=== PATIENT | female | born 1940 | race Caucasian/White ===

== ENCOUNTER 2021-07-05 04:51 | Inpatient (IN) | payer MEDICARE ==
[2021-07-05] MEDS ORDERED: Aspirin Chewable 81 MG TAB ONE (07:05)
[2021-07-05 07:09] LABS: #Monocytes 0.5 10x3/uL (0.0-1.1); #Neutrophils 15.7 10x3/uL (1.5-8.4); %Basophils 0.2 % (0.0-2.0); %Lymphocytes 1.9 % (18.0-47.0); %Neutrophils 93.5 % (40.0-75.0); Hemoglobin 11.8 g/dL (12.0-15.5); Mean Corpuscular Hemoglobin 32.5 pg (27.0-33.0); Mean Corpuscular Volume 95.6 fl (81.6-98.3); Mean Platelet Volume 10.2 fl (7.4-10.4); Platelet Count 186 10x3/uL (150-450); RBC Distribution Width 12.3 % (11.5-14.5); Red Blood Cell (RBC) Count 3.63 10x6/uL (3.90-5.03); White Blood Cell (WBC) Count 16.8 10x3/uL (3.5-10.5)
[2021-07-05 07:32] LABS: ALT (SGPT) 166 U/L (8-55); AST (SGOT) 117 U/L (5-34); Albumin 3.2 g/dL (3.4-4.8); Alkaline Phosphatase 246 U/L (40-110); Anion Gap 19 mmol/L (10-20); BUN (Urea Nitrogen) 26 mg/dL (9.8-20.1); Calc. Creatinine Clearance 0 mL/min (70-130); Carbon Dioxide 19 mmol/L (23-31); Chloride 101 mmol/L (98-107); Globulin 2.7 g/dL (2.4-3.5); Protein, Total 5.9 g/dL (5.8-8.1); Sodium 136 mmol/L (136-145)
[2021-07-05 07:59] LABS: CKMB 4.5 ng/mL (0-6.6)
[2021-07-05] MEDS ORDERED: Potassium Chloride 20 MEQ TAB ONE (08:09)
[2021-07-05 08:18] LABS: SARS-CoV-2 NAA Rapid Test Not Detected (NotDetected)
[2021-07-05 08:56] LABS: Bilirubin 6 (Negative); Blood, Urine 150 (Negative); Clarity Slightly Cloudy (Clear); Glucose, Urine (Dipstick) Normal (Negative); Ketone, Urine 5 mg/dL (Negative); Leukocyte 100 (Negative); Nitrite Negative (Negative); Protein, Urine (Dipstick) 30 mg/dl (Neg-Trace); Specific Gravity, Urine 1.015 (1.002-1.036)
[2021-07-05 09:19] LABS: Calcium 9.8 mg/dL (7.8-10.44); Glucose 116 mg/dL (83-110)
[2021-07-05 09:28] LABS: Bacteria/HPF 1+ HPF (None Seen); RBC/HPF 0-3 HPF (0-3); Squamous Epithelial 0-3 HPF (0-3)
[2021-07-05] MEDS ORDERED: HumaLOG 300 UNITS/3 ML VIAL SC PRN ×2 (11:18)
[2021-07-05] MEDS ORDERED: Dextrose 50% Abboject 50 ML SYRINGE SLOW IVP PRN (11:18)
[2021-07-05] MEDS ORDERED: Nitroglycerin 0.4 MG TAB (25 Tab Bottle) SL PRN (11:18)
[2021-07-05] MEDS ORDERED: Dextrose 5% in Water 1,000 ML IV PRN (11:18)
[2021-07-05 12:09] LABS: Troponin I 0.062 ng/mL (< 0.028)
[2021-07-05 12:50] LABS: Lactic Acid 1.7 mmol/L (0.5-2.2)
[2021-07-05 15:08] LABS: Troponin I 0.046 ng/mL (< 0.028)
[2021-07-05 21:03] VITALS: BMI 28.3
[2021-07-05] MEDS: Sodium Chloride 0.9% 1,000 ML IV SCH ×2 (22:00→22:01)
[2021-07-06 04:15] LABS: #Eosinphils 0.1 10x3/uL (0.0-0.5); #Monocytes 0.9 10x3/uL (0.0-1.1); #Neutrophils 13.9 10x3/uL (1.5-8.4); %Basophils 0.2 % (0.0-2.0); %Eosinophils 0.3 % (0.0-6.0); %Lymphocytes 5.6 % (18.0-47.0); %Monocytes 5.4 % (0.0-10.0); Hemoglobin 11.8 g/dL (12.0-15.5); Mean Corpuscular HGB CONC 34.1 g/dL (32.0-36.0); Mean Corpuscular Hemoglobin 32.4 pg (27.0-33.0); Mean Corpuscular Volume 95.1 fl (81.6-98.3); Mean Platelet Volume 10.5 fl (7.4-10.4); Platelet Count 163 10x3/uL (150-450); RBC Distribution Width 12.5 % (11.5-14.5); Red Blood Cell (RBC) Count 3.64 10x6/uL (3.90-5.03)
[2021-07-06 04:24] LABS: ALT (SGPT) 129 U/L (8-55); AST (SGOT) 83 U/L (5-34); Alkaline Phosphatase 164 U/L (40-110); Anion Gap 15 mmol/L (10-20); BUN (Urea Nitrogen) 23 mg/dL (9.8-20.1); Calc. Creatinine Clearance 42 mL/min (70-130); Calcium 9.8 mg/dL (7.8-10.44); Carbon Dioxide 18 mmol/L (23-31); Chloride 108 mmol/L (98-107); Globulin 2.7 g/dL (2.4-3.5); Glucose 115 mg/dL (83-110); Potassium 3.9 mmol/L (3.5-5.1); Protein, Total 5.7 g/dL (5.8-8.1); Sodium 137 mmol/L (136-145)
[2021-07-06] MEDS: cefTRIAXone\\ROCEPHIN 1 GM in Sodium Chloride 0.9% 100 ML IVPB SCH (09:08)
[2021-07-06] MEDS: Aspirin 325 MG TAB PO SCH (09:08)
[2021-07-06] MEDS: Sodium Chloride 0.9% 1,000 ML IV SCH ×2 (09:08→20:44)
[2021-07-06] MEDS ORDERED: Amlodipine 5 MG TAB PO SCH (13:00)
[2021-07-06] MEDS: Metoprolol Tartrate 50 MG TAB PO SCH (20:44)
[2021-07-07 06:38] LABS: #Eosinphils 0.2 10x3/uL (0.0-0.5); #Monocytes 0.5 10x3/uL (0.0-1.1); #Neutrophils 7.3 10x3/uL (1.5-8.4); %Basophils 0.4 % (0.0-2.0); %Eosinophils 1.8 % (0.0-6.0); %Lymphocytes 14.7 % (18.0-47.0); %Monocytes 5.3 % (0.0-10.0); %Neutrophils 76.6 % (40.0-75.0); Hemoglobin 12.4 g/dL (12.0-15.5); Mean Corpuscular HGB CONC 34.2 g/dL (32.0-36.0); Mean Corpuscular Hemoglobin 31.9 pg (27.0-33.0); Mean Corpuscular Volume 93.3 fl (81.6-98.3); Mean Platelet Volume 10.2 fl (7.4-10.4); Platelet Count 179 10x3/uL (150-450); RBC Distribution Width 12.7 % (11.5-14.5); Red Blood Cell (RBC) Count 3.89 10x6/uL (3.90-5.03); White Blood Cell (WBC) Count 9.6 10x3/uL (3.5-10.5)
[2021-07-07 06:45] LABS: ALT (SGPT) 95 U/L (8-55); AST (SGOT) 40 U/L (5-34); Alkaline Phosphatase 159 U/L (40-110); Anion Gap 14 mmol/L (10-20); BUN (Urea Nitrogen) 15 mg/dL (9.8-20.1); Bilirubin, Total 1.9 mg/dL (0.2-1.2); Calc. Creatinine Clearance 52 mL/min (70-130); Calcium 9.9 mg/dL (7.8-10.44); Carbon Dioxide 19 mmol/L (23-31); Chloride 108 mmol/L (98-107); Glucose 101 mg/dL (83-110); Potassium 3.7 mmol/L (3.5-5.1); Sodium 137 mmol/L (136-145)
[2021-07-07] MEDS ORDERED: Amlodipine 5 MG TAB PO SCH (09:00)
[2021-07-07] MEDS ORDERED: Losartan 25 MG TAB PO SCH (09:00)
[2021-07-07] MEDS ORDERED: Levothyroxine Sodium 88 MCG TAB PO SCH (09:00)
[2021-07-07] MEDS: cefTRIAXone\\ROCEPHIN 1 GM in Sodium Chloride 0.9% 100 ML IVPB SCH (10:32)
[2021-07-07] MEDS: Aspirin 325 MG TAB PO SCH (10:32)
[2021-07-07] MEDS: Metoprolol Tartrate 50 MG TAB PO SCH (10:32)
[2021-07-07] MEDS: Sodium Chloride 0.9% 1,000 ML IV SCH (10:33)
[2021-07-07 13:18] VITALS: BP 172/85; TEMP 98
== END 2021-07-07 13:30 | disposition home or self-care (01) | DRG 303 ==
LOC: CSHERS 04:51 → CSHTELE 20:54
PROVIDERS: ADMIT Family Medicine; ATTEND Family Medicine
DX: I25.118 Atherosclerotic heart disease of native coronary artery with other forms of angina pectoris (principal); N39.0 Urinary tract infection, site not specified; N17.9 Acute kidney failure, unspecified; B96.20 Unspecified Escherichia coli [E. coli] as the cause of diseases classified elsewhere; Z20.822 Contact with and (suspected) exposure to COVID-19; E87.6 Hypokalemia; R74.01 Elevation of levels of liver transaminase levels; I10 Essential (primary) hypertension; E11.9 Type 2 diabetes mellitus without complications; E78.2 Mixed hyperlipidemia; E03.9 Hypothyroidism, unspecified; Z90.89 Acquired absence of other organs; Z98.42 Cataract extraction status, left eye; Z98.41 Cataract extraction status, right eye; K80.20 Calculus of gallbladder without cholecystitis without obstruction; Z79.82 Long term (current) use of aspirin; Z79.890 Hormone replacement therapy; Z79.899 Other long term (current) drug therapy
CPT/HCPCS: 36415; 36416; 71045; 76705; 80053; 81003; 81015; 82553; 83605; 84484; 85025; 87040; 87077; 87086; 87186; 93005; 93306; 96365; 96366; J0696; J1956; J3490; J7050; U0002

== ENCOUNTER 2021-08-26 07:19 | Day surgery (SDC) | payer MEDICARE ==
[2021-08-25 09:44] VITALS: BMI 26.0
[2021-08-26] MEDS ORDERED: Lidocaine 1% MPF 2 ML VIAL ONE (07:44)
[2021-08-26] MEDS ORDERED: Bupivacaine PF 0.5% 30 ML VIAL ONE (08:20)
[2021-08-26] MEDS ORDERED: EPINEPHrine 1 MG/ML AMP ONE (08:20)
[2021-08-26] MEDS ORDERED: Lidocaine 1% PF 5 ML VIAL ONE (09:08)
[2021-08-26] MEDS ORDERED: Rocuronium Bromide 10 MG/ML (10ML VIAL) ONE (09:08)
[2021-08-26] MEDS ORDERED: Fentanyl 100 MCG/2 ML VIAL ONE (09:08)
[2021-08-26] MEDS ORDERED: Ondansetron PF 4 MG/2 ML Vial ONE (09:08)
[2021-08-26] MEDS ORDERED: Dexamethasone 20 MG/5 ML VIAL ONE (09:08)
[2021-08-26] MEDS ORDERED: PROPOFOL 20 ML ONE (09:08)
[2021-08-26] MEDS ORDERED: ceFAZolin 2 GM/DEX 5% 100 ML BAG ONE (09:57)
[2021-08-26] MEDS ORDERED: PHENYLEPHRINE-NS 100 MCG/ML 10 ML SYRINGE ONE (10:20)
[2021-08-26] MEDS ORDERED: ePHEDrine Sulfate 50 MG/10 ML VIAL ONE (10:24)
[2021-08-26] MEDS ORDERED: Glycopyrrolate 0.2 MG/ML 5 ML SYRINGE ONE (10:50)
[2021-08-26] MEDS ORDERED: HYDROcodone/Acetaminophen 5/325 mg Tablet PO PRN (10:52)
== END 2021-08-26 12:50 | disposition home or self-care (01) ==
LOC: CSHSDC 07:19
PROVIDERS: ATTEND Surgery
PROC: 0FT44ZZ Resection of Gallbladder, Percutaneous Endoscopic Approach (ICD-10-PCS; principal; 2021-08-26)
DX: K80.10 Calculus of gallbladder with chronic cholecystitis without obstruction (principal); I10 Essential (primary) hypertension; Z79.899 Other long term (current) drug therapy; Z79.82 Long term (current) use of aspirin; E78.00 Pure hypercholesterolemia, unspecified; E03.9 Hypothyroidism, unspecified; E55.9 Vitamin D deficiency, unspecified
CPT/HCPCS: 88304; J0171; J1100; J2405; J2704; J3010; S0020